=== PATIENT | female | born 1930 | race Caucasian/White ===

== ENCOUNTER 2019-08-27 22:50 | Emergency (ER) | payer MEDICARE ==
--- NOTE | 2019-08-27 23:34 | RAD ---
Chest one view HISTORY: Dyspnea. FINDINGS: Cardiac silhouette is magnified and enlarged. Pulmonary vasculature is engorged with widesp read reticular interstitial prominence. Mediastinum is midline with aortic calcification. No lobar consolidation or evidence of pneumothorax. Tiny linear density projecting over the right mid chest co uld represent a foreign body or overlying artifact. There are degenerative changes of the left shoulder. IMPRESSION: Cardiomegaly with pulmonary vascular congestion. Atherosclerosis.
[2019-08-27 23:49] LABS: %Basophils 1.1 % (0.0-1.0); %Eosinophils 2.8 % (0.0-10.0); %Lymphocytes 19.9 % (21.0-51.0); %Monocytes 9.4 % (0.0-10.0); %Neutrophils 66.8 % (42.0-75.0); Band 4 % (5-11); Elliptocytes SLIGHT = 2-5 cells (100X) (0-1/hpf); Hemoglobin 8.3 g/dL (12.0-16.0); Hypochromia SLIGHT = 6-15 cells (100X) (0-5/hpf); Lymphocytes 20 % (21-51); MDiff Complete? YES; Mean Corpuscular HGB CONC 29.9 g/dL (32.0-36.0); Mean Corpuscular Hemoglobin 24.6 pg (27.0-31.0); Mean Platelet Volume 8.7 fL (7.4-10.4); Monocytes 9 % (0-10); Neutrophil 67 % (42-75); Platelet Count 292 thou/uL (130-400); RBC Distribution Width 14.4 % (11.5-14.5); Red Blood Cell (RBC) Count 3.45 mill/uL (4.20-5.40); White Blood Cell (WBC) Count 8.6 thou/uL (4.8-10.8)
[2019-08-27 23:54] LABS: ALT (SGPT) 8 U/L (8-55); AST (SGOT) 12 U/L (5-34); Albumin 3.5 g/dL (3.4-4.8); Alkaline Phosphatase 57 U/L (40-110); Anion Gap 15 mmol/L (10-20); BUN (Urea Nitrogen) 15 mg/dL (9.8-20.1); Bilirubin, Total 0.4 mg/dL (0.2-1.2); CK (CPK) 52 U/L (29-168); Calc. Creatinine Clearance 0 mL/min (70-130); Calcium 8.6 mg/dL (7.8-10.44); Carbon Dioxide 24 mmol/L (23-31); Chloride 106 mmol/L (98-107); Estimated GFR-MDRD 53; Globulin 3.1 g/dL (2.4-3.5); Glucose 105 mg/dL (83-110); Potassium 3.9 mmol/L (3.5-5.1); Protein, Total 6.6 g/dL (6.0-8.3); Sodium 141 mmol/L (136-145)
[2019-08-28] MEDS ORDERED: Furosemide 40 MG/4 ML VIAL ONE (00:10)
[2019-08-28] MEDS ORDERED: Aspirin Chewable 81 MG TAB ONE (00:23)
[2019-08-28] MEDS ORDERED: Lisinopril 10 MG TAB ONE (00:23)
[2019-08-28 00:25] LABS: CKMB 1.5 ng/mL (0-6.6)
[2019-08-28 01:02] LABS: Bilirubin Negative (Negative); Blood, Urine Negative (Negative); Clarity Clear (Clear); Glucose, Urine (Dipstick) Negative (Negative); Leukocyte Trace (Negative); Nitrite Negative (Negative); Protein, Urine (Dipstick) Negative (Neg-Trace); Urobilinogen 0.2 mg/dL (Less than 2)
[2019-08-28 01:09] LABS: Bacteria/HPF Rare-Few HPF (None Seen); RBC/HPF 0-3 HPF (0-3); Squamous Epithelial 0-3 HPF (0-3); WBC/HPF 0-3 HPF (0-3)
[2019-08-28 05:41] LABS: Critical Call Chem Troponin I CCC
[2019-08-28 05:58] LABS: CKMB 1.9 ng/mL (0-6.6)
[2019-08-28] MEDS ORDERED: Enoxaparin Sodium 60 MG/0.6 ML SYRINGE ONE (09:36)
== END 2019-08-28 10:22 | disposition short-term general hospital (02) ==
LOC: MADERS 22:50
DX: I11.0 Hypertensive heart disease with heart failure (principal); I50.9 Heart failure, unspecified; I35.0 Nonrheumatic aortic (valve) stenosis; D64.9 Anemia, unspecified; R79.89 Other specified abnormal findings of blood chemistry; Z79.899 Other long term (current) drug therapy
CPT/HCPCS: 36415; 71045; 80053; 81003; 81015; 82550; 82553; 83880; 84484; 85025; 85379; 93005; 94760; 96372; 96374; J1650; J1940; J7620